=== PATIENT | male | born 1995 | race African-American/Black ===

== ENCOUNTER 2017-12-16 12:47 | Emergency (ER) | payer OTHER ==
[2017-12-16 13:08] VITALS: BP 114/73; PULSE 66; TEMP 97.5; O2SAT 100
[2017-12-16] MEDS ORDERED: Silver Sulfadiazine 1% Cream (20 gm) TOP STA (13:09)
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
[2017-12-16] MEDS ORDERED: Silver Sulfadiazine 1% Cream (20 gm) ONE (13:20)
[2017-12-16 13:50] VITALS: RESP 17
== END 2017-12-16 13:49 | disposition home or self-care (01) ==
LOC: C.ER 12:47
DX: T23.102A Burn of first degree of left hand, unspecified site, initial encounter (principal); T23.101A Burn of first degree of right hand, unspecified site, initial encounter; X11.8XXA Contact with other hot tap-water, initial encounter

== ENCOUNTER 2017-12-28 10:59 | Emergency (ER) | payer OTHER ==
[2017-12-28 11:07] VITALS: O2SAT 100
[2017-12-28] MEDS ORDERED: Bacitracin 500 Units/gm Oint Foilpak UD ONE (12:41)
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
[2017-12-28 12:46] VITALS: BP 114/71; PULSE 68; RESP 18; TEMP 98.3
== END 2017-12-28 13:04 | disposition home or self-care (01) ==
LOC: C.ER 10:59
DX: T23.002A Burn of unspecified degree of left hand, unspecified site, initial encounter (principal)